=== PATIENT | female | born 1970 | race Caucasian/White ===

== ENCOUNTER 2019-11-03 19:19 | Emergency (ER) | payer MEDICARE, SELFPAY ==
--- NOTE | ~2019-11-03 | XR_ITS ---
XR chest 1V portable DATE: 11/03/2019 20:32 INDICATION: Cough, fever, weakness TECHNIQUE: Portable AP chest on 11/03/2019 at 2026 hours COMPARISON: None FINDINGS: Normal heart size. No hilar or mediastinal enlargement. No pulmonary infiltrate or consol idation, pulmonary vascular congestion or pleural effusion or pneumothorax. Surgical clips, right upper quadrant, consistent with cholecystectomy. IMPRESSION: No active cardiopulmonary disease Reviewed, dictated and finalized at location A.
[2019-11-03 19:21] VITALS: BP 150/42; PULSE 107; RESP 20; TEMP 37; O2SAT 98
[2019-11-03 19:43] LABS: Basophils Percent Auto 0.2 % (0.2-1.2); Eosinophils Percent Auto 0.7 % (0-4.4); Hematocrit 42.1 % (37.0-47.0); Hemoglobin 14.1 g/dL (12.0-15.0); Immature Granulocyte Absolute 0.01 K/mm3 (0.00-0.031); Immature Granulocyte Percent A 0.2 % (0-0.5); Lymphocytes Absolute Auto 1.85 K/mm3 (0.9-3.2); Lymphocytes Percent Auto 43.8 % (18.3-44.2); Mean Corpuscular HGB Conc 33.5 g/dl (32-36); Mean Corpuscular Volume 89.6 fl (80-100); Mean Platelet Volume 10.6 fl (7.4-10.4); Monocytes Absolute Auto 0.5 K/mm3 (0.1-0.6); Monocytes Percent Auto 11.4 % (2.6-8.5); Neutrophils Absolute Auto 1.8 K/mm3 (1.3-6.7); Neutrophils Percent Auto 43.7 % (45.5-73.1); Platelet Count Result 187 k/mm3 (150-375); Red Cell Distribution Width 12.9 % (11.5-14.5); White Blood Count 4.2 K/mm3 (4.5-10.0)
[2019-11-03 19:55] LABS: Alanine Aminotransferase 47 U/L (4-35); Albumin Level 4.2 g/dL (3.5-5.1); Alkaline Phosphatase 114 U/L (38-126); Anion Gap 7 mmol/L (8-16); Aspartate Amino Transferase 46 U/L (14-36); Bilirubin,Total 0.3 mg/dL (0.2-1.3); Blood Urea Nitrogen 17 mg/dL (7-17); Calcium 8.7 mg/dL (8.4-10.2); Carbon Dioxide 28 mmol/L (22-30); Chloride 103 mmol/L (98-107); Estimated CRCL calculation 57 ml/min; Estimated Glomerular Filt Rate > 60; Glucose 98 mg/dL (65-105); Lipase 133 U/L (23-300); Potassium 3.4 mmol/L (3.4-5.0); Sodium 138 mmol/L (137-145)
--- NOTE | 2019-11-03 19:58 | ED.GENADULT ---
HPI - General Adult General Chief complaint: Unspecified Stated complaint: dehydration Time Seen by Provider: 11/03/19 19:58 Source: patient Mode of arrival: ambulatory Limitations: no limitations History of Present Illness HPI narrative: Patient is a 49-year-old female who presents for evaluation of nausea, vomiting, concern for dehydration. Patient states she has been feeling unwell over the past 6 weeks, started to develop nausea with multiple episodes of nonbloody, nonbilious emesis starting on Monday, 2 days ago. Patient denies any abdominal pain or cramping. She reports mild cough without shortness of breath. She reports subjective fever. She denies any urinary type symptoms, diarrhea or constipation. Patient states she recently traveled home from [place] where she had been visiting her daughter for 3 weeks and was seen at 2 emergency departments in [place] and diagnosed with hypokalemia and dehydration. Patient states she saw her primary care provider and was otherwise doing well and had no medications given to her at that follow-up appointment. Patient was seen initially at an urgent care today and given a COVID swab and Zofran without improvement in her symptoms with the Zofran. Related Data Home Medications Medication Instructions Recorded Confirmed atorvastatin 11/03/19 11/03/19 ergocalciferol (vitamin D2) 11/03/19 [Vitamin D2] metoprolol succinate PO 11/03/19 metoprolol succinate PO 11/03/19 nortriptyline 11/03/19 potassium chloride meq PO 11/03/19 triamterene-hydrochlorothiazid cap 11/03/19 Allergies Allergy/AdvReac Type Severity Reaction Status Date / Time promethazine Allergy Unknown Hallucinati Verified 11/03/19 19:33 ng PROMETHAZINE HCL Allergy Unknown Hallucinati Uncoded 11/03/19 19:33 ng Review of Systems Review of Systems: Narrative: CONSTITUTIONAL reports subjective fever and chills CARDIOVASCULAR: Denies chest pain, palpitations, or edema. RESPIRATORY: Reports dry cough and shortness of breath GASTROINTESTINAL: Denies abdominal pain, reports nausea and vomiting GENITOURINARY: Denies dysuria or hematuria. SKIN: Denies rash or itching. MUSCULOSKELETAL: Denies back pain, joint pain, or myalgia. NEUROLOGIC: Denies headache, numbness, or weakness. [facility] Past Medical History Medical History CVA (cerebral vascular accident) Depression Hypertension Surgical History Surgical History Hx of cholecystectomy Family History Family History (Updated 04/05/16 @ 18:06 by DOCTOR UNKNOWN) Sibling Hypertension Social History Social History Smoking status: Never smoker Alcohol intake: never Exam Narrative: Exam Narrative: GENERAL: Awake, alert, conversant HEAD: Normocephalic, atraumatic. EYES: PERRLA and EOMI. ENT: Nares clear, no rhinorrhea or epistaxis. Mucous membranes dry NECK: Supple. CHEST: No respiratory distress, breathing even and non labored HEART: Tachycardic rate, sinus rhythm ABDOMEN:Non distended, non tender, no suprapubic tenderness EXTREMITIES: Normal range of motion. No edema. SKIN: Warm, dry, no rash. NEURO:No focal deficits. Alert and oriented x3 Course Vital Signs Vital signs: Vital Signs Temperature 37.0 C 11/03/19 19:21 Pulse Rate 107 H 11/03/19 19:21 Respiratory Rate 11/03/19 19:21 Blood Pressure 150/42 H 11/03/19 19:21 Pulse Oximetry 98 11/03/19 19:21 Temperature 37.0 C 11/03/19 19:21 Pulse Rate 107 H 11/03/19 19:21 Respiratory Rate 11/03/19 19:21 Blood Pressure 150/42 H 11/03/19 19:21 Pulse Oximetry 98 11/03/19 19:21 Medical Decision Making MDM Narrative Medical decision making narrative: Patient presented for evaluation of nausea, vomiting and concern for dehydration. Patient is denying headache, chest pain, visual changes,
[2019-11-03] MEDS: ONDANSETRON INJ 4 MG/2 ML VIAL IV PUSH (20:17)
[2019-11-03] MEDS: SODIUM CHLORIDE 0.9% IV 1,000 ML 999 ML IV CONT (20:17)
[2019-11-03] MEDS: FAMOTIDINE 20 MG/2 ML VIAL IV PUSH (20:17)
[2019-11-03] MEDS: DICYCLOMINE HCL INJ 20 MG/2 ML VIAL IM (20:17)
[2019-11-03] MEDS: DEXTROSE 5%/0.45% SOD CHL 1,000 ML 100 ML IV CONT (20:23)
[2019-11-03 20:30] LABS: Add Urine Microscopic? YES; Appearance Urine Cloudy (Clear); Bacteria Urine 4+ /hpf; Bilirubin Urine Negative (Negative); Blood Urine Negative (Negative); Color Urine Amber (Yellow); Glucose Urine UA Negative (Negative); Ketones Urine Trace mg/dL (Negative); Leukocyte Esterase Ur Negative LEU/UL (Negative); Mucus Urine Heavy /lpf; Nitrate Urine Negative (Negative); Protein Urine 1+ mg/dL (Negative); Squamous Epithelial Cell Urine Many /hpf (Few); Urobilinogen Urine Negative mg/dL (<2.0)
[2019-11-03 20:31] LABS: Specific Grav Ur 1.032 (1.001-1.035)
[2019-11-03 22:20] VITALS: BP 128/80; PULSE 77; RESP 18; TEMP 36.7; O2SAT 99
== END 2019-11-03 22:21 | disposition home or self-care (01) ==
PROVIDERS: Emergency Provider Emergency Medicine; PCP Internal Medicine
DX: R11.2 Nausea with vomiting, unspecified (principal); Z86.73 Personal history of transient ischemic attack (TIA), and cerebral infarction without residual deficits; I10 Essential (primary) hypertension; F32.9 Major depressive disorder, single episode, unspecified
CPT/HCPCS: 36415; 71045; 80053; 81001; 81025; 83690; 85025; 87086; 87088; 96361; 96374; 96375; 99284; J0500; J2405; J7030

== ENCOUNTER 2023-06-15 08:52 | Outpatient (CLI) | payer MEDICARE, SELFPAY ==
--- NOTE | ~2023-06-15 | US_ITS ---
EXAMINATION: US right upper quadrant DATE: 06/15/2023 09:30 INDICATION: Right upper quadrant pain TECHNIQUE: Multiple grayscale and Doppler ultrasound images of the abdomen were obtained. COMPARISON: CT, 07/22/2016 FINDINGS: The head and body of the pancreas are normal. The pancreatic tail is obscured by bowel gas. The liver demonstrates increased echogenicity, heterogenous echotexture, and decreased through trans mission. No surface nodularity. Normal hepatopetal flow in the main portal vein. Changes of cholecyst ectomy are noted. The normal common bile duct measures 4 mm. There was no sonographic Garrison sign. IMPRESSION: 1. Diffuse hepatic steatosis. Reviewed, dictated and finalized at location F.
== END 2023-06-15 08:53 | disposition home or self-care (01) ==
LOC: ANHIMG 09:02
DX: K76.0 Fatty (change of) liver, not elsewhere classified (principal)
CPT/HCPCS: 76705